=== PATIENT | female | born 1985 | race Caucasian/White ===

== ENCOUNTER 2023-08-03 14:53 | Inpatient (IN) | payer BC ==
[~2023-08-03] VITALS: Ht 165.1 cm; Wt 68.1 kg
[~2023-08-03 14:53] MED LIST: MOTRIN 800800 MG/TAB PO; PERCOCET 325 MG1 TA2 PO; PRENATAL1 TA1 PO
--- NOTE | 2023-08-03 16:20 | NUR ---
REPORT RECEIVED FROM [place] [facility] NURSE. PT UP TO FLOOR AT THIS TIME, A/O X4, STEADY GAIT, 4/10 PAIN IN LOWER ABDOMEN. HSOPITALIST AND DR. TROY NOTIFIED OF PT ARRIVAL. PT REMAINS NPO, WILL CONTINUE TO MONITOR.
[2023-08-03 16:45] VITALS: BP 114/75; PULSE 90; TEMP 98.3
[2023-08-03] MEDS ORDERED: Ondansetron 4 MG/2 ML VIAL IV PRN (17:45)
[2023-08-03] MEDS ORDERED: Ketorolac 30 MG/ML VIAL IV PRN (17:45)
[2023-08-03] MEDS ORDERED: Acetaminophen 325 MG TAB PO PRN (17:45)
[2023-08-03] MEDS ORDERED: D5NS & 20 mEq KCl 1,000 ML IV SCH (17:45)
[2023-08-03] MEDS ORDERED: HYDROmorphone 0.5 MG/0.5 ML SYRINGE IV PRN (17:45)
[2023-08-03 19:47] VITALS: BP 117/78; PULSE 107; TEMP 98.7
[2023-08-03 20:00] VITALS: BP_SYST 117
[2023-08-04] VITALS (13 sets, daily range): BP systolic 100–114; BP diastolic 66–74; PULSE 70–87; TEMP 97.9–99.4
[2023-08-04 06:51] LABS: BASO % 0.6 % (0.0-2.0); EOS # 0.2 K/mm3 (0.0-0.7); EOS % 2.5 % (0.0-4.0); GRAN # 4.4 K/mm3 (1.4-6.5); GRAN % 61.4 % (42.2-75.2); HEMOGLOBIN 10.4 g/dl (12.5-16.0); LYMPH # 1.6 K/mm3 (1.2-3.4); LYMPH % 22.3 % (20.0-51.0); MEAN CELL VOLUME 86 fl (80.0-100.0); MEAN CORPUSCULAR HEMOGLOBIN 29 pg (27-31); MEAN CORPUSCULAR HGB CONC 33 g/dl (33.0-37.0); MEAN PLATELET VOLUME 11.3 fl (7.4-10.4); MONO # 0.9 K/mm3 (0.1-0.6); MONO % 12.9 % (1.7-9.3); PLATELET COUNT 257 K/mm3 (130-400); RED BLOOD COUNT 3.63 M/mm3 (4.10-5.30); REDCELL DISTRIBUTION WIDTH-CV 11.9 % (11.5-14.5)
[2023-08-04 07:00] LABS: HEMATOCRIT 31.3 % (37.0-47.0)
[2023-08-04 07:02] LABS: CALCIUM 8.8 mg/dL (8.4-10.2); CREATININE, serum 0.85 mg/dL (0.57-1.11); POTASSIUM 4.2 mmol/L (3.5-4.5)
--- NOTE | 2023-08-04 09:15 | NUR ---
pt a&o3 resting in bed. vss. pt given prn tylenol for pain. pt tolerating clear liquid diet, denies nausea. IV to right forearm patent with fluids infusing. pt did well with ambulating in the halls with therapy this morning. pt denies needs at this time. call light in reach.
--- NOTE | 2023-08-04 12:00 | NUR ---
right ac IV leaking, new 22 diffusics IV started to left hand.
--- NOTE | 2023-08-04 13:46 | NUR ---
kettle worker met with patient to discuss discharge planning. Patient reports she lives in [place] with her , Derrick, P# [phone]. PCP is Dr. Doll, pharmacy is [facility] [place] but would like to use [facility] for any discharge medications. No issues affording medications. New insurance is [employer] SW made copies of the insurance card and placed in chart and provided new information to admissions. No DPOA-HC and does not want to complete one at this time. No DME, reports to be independent with ADLS and transports herself to appointments. Patient reports her only concern is ensuring her pain is managed before discharge. Patient would like to return home at time of discharge. kettle worker contacted admissions to update patient's address, emergency contact, PCP and insurance in the system. DIscharge plan: Home
[2023-08-04] MEDS ORDERED: Docusate Sodium 100 MG CAP PO SCH (21:00)
[2023-08-05] VITALS (12 sets, daily range): BP systolic 96–112; BP diastolic 64–75; PULSE 75–92; TEMP 97.4–99.4
[2023-08-05 07:56] LABS: BASO # 0.1 K/mm3 (0.0-0.2); BASO % 0.7 % (0.0-2.0); EOS # 0.1 K/mm3 (0.0-0.7); EOS % 1.8 % (0.0-4.0); GRAN # 4.8 K/mm3 (1.4-6.5); GRAN % 63.8 % (42.2-75.2); LYMPH # 1.9 K/mm3 (1.2-3.4); MEAN CELL VOLUME 87 fl (80.0-100.0); MEAN CORPUSCULAR HGB CONC 33 g/dl (33.0-37.0); MEAN PLATELET VOLUME 11.4 fl (7.4-10.4); MONO # 0.6 K/mm3 (0.1-0.6); MONO % 8.3 % (1.7-9.3); PLATELET COUNT 255 K/mm3 (130-400); RED BLOOD COUNT 3.23 M/mm3 (4.10-5.30); REDCELL DISTRIBUTION WIDTH-CV 12.2 % (11.5-14.5)
[2023-08-05 08:01] LABS: HEMATOCRIT 28.1 % (37.0-47.0); HEMOGLOBIN 9.3 g/dl (12.5-16.0); MEAN CORPUSCULAR HEMOGLOBIN 29 pg (27-31)
--- NOTE | 2023-08-05 08:18 | NUR ---
pt a&ox3 resting in bed, finished breakfast and tolerating intake well. pt denies pain and nausea this morning. assissted pt with items to take a shower. no other needs at this time. call light in reach.
[2023-08-05 08:19] LABS: ALBUMIN 2.5 gm/dL (3.5-5.0); ALKALINE PHOSPHATASE 45 U/L (40-150); ANION GAP 5 mmol/L (7-16); AST,SGOT 10 U/L (5-34); BILIRUBIN,TOTAL 0.4 mg/dL (0.2-1.2); BLOOD UREA NITROGEN 9 mg/dL (7-19); CALCIUM 8.5 mg/dL (8.4-10.2); CARBON DIOXIDE 22 mmol/L (22-29); CHLORIDE 112 mmol/L (98-107); CREATININE, serum 0.82 mg/dL (0.57-1.11); GLUCOSE 102 mg/dL (70-99); POTASSIUM 4.3 mmol/L (3.5-4.5); SODIUM 139 mmol/L (136-145); TOTAL PROTEIN 5.5 gm/dL (6.2-8.1)
[2023-08-05 08:24] LABS: ALANINE AMINOTRANSFERASE < 6 U/L (0-55)
--- NOTE | 2023-08-05 08:29 | NUR ---
0200 zosyn dose scanned but not given. spoke to pharmacist and will resume with scheduled dose at 1000.
[2023-08-05] MEDS ORDERED: Acetaminophen 500 MG TAB PO SCH (11:45)
[2023-08-06] VITALS (8 sets, daily range): BP systolic 103–118; BP diastolic 65–77; PULSE 75–88; TEMP 98.1–98.5
[2023-08-06 06:51] LABS: BASO # 0.1 K/mm3 (0.0-0.2); BASO % 0.6 % (0.0-2.0); EOS # 0.2 K/mm3 (0.0-0.7); EOS % 2.2 % (0.0-4.0); GRAN % 64.6 % (42.2-75.2); LYMPH # 2.1 K/mm3 (1.2-3.4); LYMPH % 22.5 % (20.0-51.0); MEAN CELL VOLUME 89 fl (80.0-100.0); MEAN CORPUSCULAR HEMOGLOBIN 29 pg (27-31); MEAN CORPUSCULAR HGB CONC 32 g/dl (33.0-37.0); MEAN PLATELET VOLUME 11.2 fl (7.4-10.4); MONO # 0.9 K/mm3 (0.1-0.6); MONO % 9.8 % (1.7-9.3); PLATELET COUNT 258 K/mm3 (130-400); RED BLOOD COUNT 3.49 M/mm3 (4.10-5.30); REDCELL DISTRIBUTION WIDTH-CV 12.3 % (11.5-14.5)
[2023-08-06 06:56] LABS: HEMATOCRIT 30.9 % (37.0-47.0)
[2023-08-06 07:25] LABS: ALBUMIN 2.5 gm/dL (3.5-5.0); BILIRUBIN,TOTAL 0.4 mg/dL (0.2-1.2); CALCIUM 8.7 mg/dL (8.4-10.2); CREATININE, serum 0.89 mg/dL (0.57-1.11); POTASSIUM 4.5 mmol/L (3.5-4.5); TOTAL PROTEIN 5.7 gm/dL (6.2-8.1)
[2023-08-06] MEDS ORDERED: Iohexol 300 - 100 ML VIAL IV ONE (09:34)
[2023-08-06] MEDS ORDERED: AMOXICILLIN 8751 TAB PO (15:34)
[2023-08-06] MEDS ORDERED: TYLENOL 500MG500 MG PO (15:35)
[2023-08-06] MEDS ORDERED: ULTRAM 50MG TAB50 MG PO (15:36)
--- NOTE | 2023-08-06 18:06 | NUR ---
REVIEWED DISCHARGE INSTRUCTIONS. PT LEFT UNIT PER WHEEL CHAIR WITH STUDENTS.
[2023-08-10] MEDS ORDERED: ROXICODONE 55 MG/TAB PO (12:51)
[2023-08-10] MEDS ORDERED: FLAGYL500 MG PO (12:51)
== END 2023-08-06 17:00 | disposition home or self-care (01) | DRG 373 ==
LOC: SURG 14:53
PROVIDERS: Surgery; ADMIT Hospitalist
DX: K35.33 Acute appendicitis with perforation, localized peritonitis, and gangrene, with abscess (principal)
CPT/HCPCS: J1885; J2543; J3480; Q9967